=== PATIENT | female | born 1950 | race Caucasian/White ===

== ENCOUNTER → 2017-07-30 | Outpatient (CLI) | payer MEDICARE ==
[2017-07-30 11:35] LABS: HEMATOCRIT 44.7 % (34.6-47.8); HEMOGLOBIN 14.9 g/dL (11.7-16.4); WHITE BLOOD COUNT 7.2 x10^3/uL (3.4-10)
[2017-07-30 11:42] LABS: BLOOD UREA NITROGEN 14 mg/dL (7-18)
[2017-07-30 12:10] LABS: ASPARTATE AMINO TRANSFERASE 18 U/L (15-37)
== END | disposition home or self-care (01) ==
LOC: LAB 11:04
PROVIDERS: ATTEND Internal Medicine
DX: F32.9 Major depressive disorder, single episode, unspecified (principal); E44.1 Mild protein-calorie malnutrition; G89.29 Other chronic pain; G47.01 Insomnia due to medical condition; F17.210 Nicotine dependence, cigarettes, uncomplicated
CPT/HCPCS: 36415; 80053; 81001; 82306; 82607; 84443; 85027

== ENCOUNTER 2017-10-31 08:50 | Inpatient (IN) | payer MEDICARE ==
[~2017-10-31] VITALS: Ht 162.6 cm; Wt 49.8 kg
[2017-10-31] MEDS ORDERED: SODIUM CHLORIDE 0.9% 1,000ML IVBOLUS ONE (09:30)
[2017-10-31] MEDS ORDERED: SODIUM CHLORIDE FLUSH 10ML SYR IVF ONE (09:30)
[2017-10-31 10:21] LABS: BASOPHILS # (AUTO) 0.02 x10^3/uL (0-0.1); BASOPHILS % (AUTO) 0 % (0-1); EOSINOPHILS # (AUTO) 0.04 x10^3/uL (0-0.4); EOSINOPHILS % (AUTO) 1 % (1-7); LYMPHOCYTES # (AUTO) 1.74 x10^3/uL (1-3.4); LYMPHOCYTES % (AUTO) 28 % (22-44); MD NO; MEAN CORPUSCULAR HEMOGLOBIN 33.1 pg (27.0-34.8); MEAN CORPUSCULAR HGB CONC 33.9 g/dL (32.4-35.8); MEAN CORPUSCULAR VOLUME 97.7 fL (80-100); MEAN PLATELET VOLUME 7.3 fL (7.4-10.4); MONOCYTES # (AUTO) 1.18 x10^3/uL (0.2-0.8); MONOCYTES % (AUTO) 19 % (2-9); NEUTROPHILS % (AUTO) 52 % (42-75); PLATELET COUNT 163 x10^3/uL (130-400); RED BLOOD COUNT 3.48 x10^6/uL (3.82-5.3); RED CELL DISTRIBUTION WIDTH 13.8 % (9.6-15.2)
[2017-10-31 10:32] LABS: TROPONIN I < 0.015 ng/mL (0.000-0.045)
[2017-10-31 10:33] LABS: INTERNATIONAL NORMALIZED RATIO 0.99 (0.93-1.1); PROTHROMBIN TIME 10.2 Seconds (9.6-11.5)
[2017-10-31 10:34] LABS: ALANINE AMINOTRANSFERASE 30 U/L (12-78); ALBUMIN 3.4 g/dL (3.4-5.0); ANION GAP 4 mmol/L (5-15); CALCIUM 8.2 mg/dL (8.5-10.1); CHLORIDE 104 mmol/L (98-107)
[2017-10-31 10:36] LABS: ALKALINE PHOSPHATASE 120 U/L (45-117); BILIRUBIN,TOTAL 0.3 mg/dL (0.2-1.0); TOTAL PROTEIN 6.4 g/dL (6.4-8.2)
[2017-10-31 11:10] LABS: MICROSCOPIC AUTO
[2017-10-31 11:18] LABS: CULTURE INDICATED? YES
[2017-10-31] MEDS ORDERED: AMLO10TA2 PO (11:36)
[2017-10-31] MEDS ORDERED: SODIUM CHLORIDE 0.9% 1,000 ML IV ONE (11:51)
[2017-10-31] MEDS ORDERED: SODIUM CHLORIDE FLUSH 10ML SYR IVF PRN (12:00)
[2017-10-31] MEDS ORDERED: CEFTRIAXONE PMX 1GM/50ML 50 ML IV ONE (12:00)
[2017-10-31] MEDS ORDERED: LORazepam 0.5MG TABLET PO PRN (13:00)
[2017-10-31] MEDS ORDERED: ONDANSETRON 2MG/ML, 2ML IVPush PRN (13:00)
[2017-10-31] MEDS ORDERED: FOLIC ACID 5 MG/ML IM ONE (13:00)
[2017-10-31] MEDS ORDERED: LORazepam 1MG TABLET PO PRN ×4 (13:00)
[2017-10-31 13:10] VITALS: BP 106/67
[2017-10-31] MEDS: ACETAMINOPHEN 325 MG TABLET PO PRN ×2 (13:26→19:59)
[2017-10-31] MEDS: NICOTINE 7 MG/24 HR PATCH.TD24 TD SCH (13:26)
[2017-10-31] MEDS: MULTIVITAMINS/MINERALS TABLET PO SCH (13:26)
[2017-10-31] MEDS ORDERED: FOLIC ACID 1 MG TABLET PO ONE (13:30)
[2017-10-31 15:18] LABS: AMPHETAMINE SCREEN, URINE Negative (Negative); BARBITURATE SCREEN, URINE Positive (Negative); BENZODIAZEPINE SCREEN, URINE Positive (Negative); CANNABINOID SCREEN, URINE Negative (Negative); COCAINE SCREEN, URINE Negative (Negative); METHADONE SCREEN, URINE Negative (Negative); OPIATE SCREEN, URINE Positive (Negative)
[2017-10-31 20:10] VITALS: BP 103/60
[2017-11-01] MEDS ORDERED: CEFTRIAXONE PMX 2GM/50ML 50 ML IV SCH
[2017-11-01] MEDS: CEFTRIAXONE 2,000 MG in SODIUM CHLORIDE 0.9% 50 ML IV SCH (00:23)
[2017-11-01 03:00] VITALS: BP 103/61
[2017-11-01] MEDS: ACETAMINOPHEN 325 MG TABLET PO PRN ×2 (05:32→10:43)
[2017-11-01 08:09] VITALS: BP 106/63
[2017-11-01] MEDS: NICOTINE 7 MG/24 HR PATCH.TD24 TD SCH (08:28)
[2017-11-01] MEDS: MULTIVITAMINS/MINERALS TABLET PO SCH (08:28)
[2017-11-01 10:35] VITALS: BP 116/74
[2017-11-01 10:39] VITALS: BP 115/69
[2017-11-01 13:49] VITALS: BP 103/58
[2017-11-01 20:16] VITALS: BP 111/70
[2017-11-02] MEDS: CEFTRIAXONE 2,000 MG in SODIUM CHLORIDE 0.9% 50 ML IV SCH (00:42)
[2017-11-02 00:59] VITALS: BP 121/70
[2017-11-02 07:25] VITALS: BP 121/84
[2017-11-02] MEDS: MULTIVITAMINS/MINERALS TABLET PO SCH (08:48)
[2017-11-02] MEDS: NICOTINE 7 MG/24 HR PATCH.TD24 TD SCH (08:48)
[2017-11-02] MEDS: ACETAMINOPHEN 325 MG TABLET PO PRN (08:49)
[2017-11-02] MEDS ORDERED: NITR100C56 PO (12:42)
[2017-11-02 13:32] VITALS: BP 113/75
== END 2017-11-02 16:21 | disposition home health service (06) | DRG 154 ==
LOC: ED 10:11 → EDIP 11:51 → 4NOR 13:05 → DCLOUNGE 11-02 16:14
PROVIDERS: ADMIT Hospitalist; ATTEND Hospitalist
DX: S02.2XXA Fracture of nasal bones, initial encounter for closed fracture (principal); G92 Toxic encephalopathy; J44.9 Chronic obstructive pulmonary disease, unspecified; J84.10 Pulmonary fibrosis, unspecified; N39.0 Urinary tract infection, site not specified; F17.200 Nicotine dependence, unspecified, uncomplicated; I10 Essential (primary) hypertension; R29.6 Repeated falls; S00.81XA Abrasion of other part of head, initial encounter; S06.0X0A Concussion without loss of consciousness, initial encounter; X58.XXXA Exposure to other specified factors, initial encounter; Z96.643 Presence of artificial hip joint, bilateral; Z88.8 Allergy status to other drugs, medicaments and biological substances
CPT/HCPCS: 36415; 70450; 70486; 71045; 80053; 80307; 81001; 84484; 85025; 85610; 85730; 87077; 87086; 87186; 93005; 96360; J0696; J7030

== ENCOUNTER 2017-11-03 13:11 | Emergency (ER) | payer MEDICARE ==
[~2017-11-03] VITALS: Ht 160 cm; Wt 48.4 kg
[~2017-11-03 13:11] MED LIST: AMLO10TA2 PO; NITR100C56 PO
[2017-11-03 15:22] LABS: ALBUMIN 3.1 g/dL (3.4-5.0); ANION GAP 7 mmol/L (5-15); CALCIUM 8.2 mg/dL (8.5-10.1); CHLORIDE 101 mmol/L (98-107); CREATININE 0.39 mg/dL (0.55-1.02)
[2017-11-03 15:24] LABS: MEAN CORPUSCULAR HEMOGLOBIN 34.3 pg (27.0-34.8); MEAN CORPUSCULAR HGB CONC 34.4 g/dL (32.4-35.8); MEAN CORPUSCULAR VOLUME 99.8 fL (80-100); MEAN PLATELET VOLUME 6.8 fL (7.4-10.4); PLATELET COUNT 234 x10^3/uL (130-400); RED BLOOD COUNT 3.37 x10^6/uL (3.82-5.3); RED CELL DISTRIBUTION WIDTH 14.3 % (9.6-15.2)
[2017-11-03 15:48] LABS: BASOPHILS # (AUTO) 0.02 x10^3/uL (0-0.1); BASOPHILS % (AUTO) 0 % (0-1); EOSINOPHILS # (AUTO) 0.05 x10^3/uL (0-0.4); EOSINOPHILS % (AUTO) 1 % (1-7); LYMPHOCYTES # (AUTO) 1.11 x10^3/uL (1-3.4); LYMPHOCYTES % (AUTO) 23 % (22-44); MD SCAN; MONOCYTES # (AUTO) 0.47 x10^3/uL (0.2-0.8); MONOCYTES % (AUTO) 10 % (2-9); NEUTROPHILS # (AUTO) 3.15 x10^3/uL (1.8-6.8); NEUTROPHILS % (AUTO) 66 % (42-75)
[2017-11-03 17:04] VITALS: BP 156/79
== END 2017-11-03 19:48 | disposition home or self-care (01) ==
LOC: ED 19:30
DX: J44.1 Chronic obstructive pulmonary disease with (acute) exacerbation (principal); I10 Essential (primary) hypertension
CPT/HCPCS: 36415; 71046; 71250; 80048; 82040; 85025; 93005; 99285